=== PATIENT | female | born 1960 | race Caucasian/White ===

== ENCOUNTER 2016-12-09 22:21 | Emergency (ER) | payer OTHER, MEDICAID ==
[2016-12-09 22:37] VITALS: BP 131/67; PULSE 82; RESP 16; TEMP 98.1; O2SAT 94
--- NOTE | 2016-12-09 23:00 | EDPHY ---
HPI/HX/ROS/PE/MDM Narrative: Chief complaint: Right arm pain HPI: 56-year-old woman noticed today an area of a little bit of swelling and irritation in her right forearm. It is just distal to her antecubital fossa where she states she gets frequent blood draws for monitoring of her liver function. She states that her last blood draw was about 3 weeks ago. Has not noticed any redness or warmth. Has had a little bit of swelling just at that area. She has not had any skin bites or lesions. Also complaining of a little bit of a numbness and tingling in her 4th and 5th fingers. She does work in housekeeping and with repetitive use. Denies any fevers or chills. No chest pain or shortness of breath. No skin rash. ROS: 10 point Review of Systems is negative except as noted in the HPI. Physical exam: General: Awake, alert, no acute distress Right arm. Patient is indicating a area of irritation in her right forearm in the ulnar aspect just distal to the antecubital fossa. Which she feels is a lump are the flexor tendons. There is no mass. There is no fluctuance. There is no erythema. It is not tender. She has no proximal lymphadenopathy. She has not sensation intact in the radial, median, and ulnar nerve distribution. Skin: No rash ED Course: Area of irritation in her right arm over the flexor tendons. There is no findings suggestive of cellulitis, there are no lesions. There is no fluctuant masses. It is possible that she has an early nerve discomfort possibly from an early shingles or other process but it is no evidence of that at this time. Certainly there is no evidence of blood clot, cellulitis or abscess. Will discharge with follow-up with her primary care physician instructions return for any worsening. General Time Seen by Provider: 12/09/16 22:50 Initial Vital Signs: Initial Vital Signs Temperature (C) 36.7 C 12/09/16 22:32 Heart Rate 82 12/09/16 22:32 Respiratory Rate 16 12/09/16 22:32 Blood Pressure 131/67 H 12/09/16 22:32 O2 Sat (%) 94 12/09/16 22:32 O2 Delivery Mode Room Air Allergies/Adverse Reactions: morphine Allergy (Verified 12/09/16 22:29) Penicillins Allergy (Verified 12/09/16 22:29) Home Medications: Medication Instructions Recorded Azathioprine 05/05/15 Duloxetine HCl 05/05/15 Celebrex 12/09/16 Lyrica 12/09/16 Premarin 12/09/16 Zolpidem Tartrate 12/09/16 Departure - Departure Disposition: Home, Routine, Self-Care Clinical Impression: Pain of upper extremity Condition: Good Instructions: Arm Pain (ED) Additional Instructions: Return emergency depart for increasing pain, redness, worsening swelling, numbness, tingling, fevers, chills, or any other concerns. Follow up with primary care physician in 2-3 days if symptoms are not improving. Referrals: Kinga Wright [Primary Care Provider] - As per Instructions
== END 2016-12-09 23:17 | disposition home or self-care (01) ==
DX: M79.631 Pain in right forearm (principal)

== ENCOUNTER → 2017-02-06 | Outpatient (CLI) | payer MEDICAID, OTHER | LOC: FIMAGING 12:17 | DX: Z12.31 Encounter for screening mammogram for malignant neoplasm of breast (principal); M81.0 Age-related osteoporosis without current pathological fracture | CPT/HCPCS: G0202 ==

== ENCOUNTER 2018-05-22 03:32 | Emergency (ER) | payer OTHER, MEDICAID ==
[2018-05-22] MEDS ORDERED: CEPHALEXIN 500MG PREPACK#4 BTL TAKEHOME ONE (03:49)
[2018-05-22] MEDS ORDERED: CEPHALEXIN 500 MG CAP PO ONE (03:49)
--- NOTE | 2018-05-22 03:49 | EDPHY ---
H & P Stated Complaint: ?UTI Time Seen by Provider: 05/22/18 03:46 HPI/ROS: HPI CHIEF COMPLAINT: Methamphetamine abuse, daily use, multiple IV drug injection site infections HISTORY OF PRESENT ILLNESS: Patient 57-year-old female, she has a history of methamphetamine abuse, and uses methamphetamine daily she injected intravenously. She lives in an . She presents emergency room with multiple complaints. She states that she injected may have missed in her left breast and said some swelling redness and pain there however it is improving. Additionally left full arm missed injection site, additionally she complains of a right labia majora abscess. She denies injecting into her right labia majora. She noticed this swelling and pain that started early this morning. No fever. Denies chest pain or shortness of breath, denies cough, denies abdominal pain. Her main complaint is right labia majora abscess. Past Medical History: Methamphetamine abuse, daily methamphetamine IV, osteoarthritis Past Surgical History: Denies significant surgical history Social History: Smokes tobacco, daily use of IV methamphetamine. Family History: Noncontributory ROS REVIEW OF SYSTEMS: A comprehensive 10 point review of systems is otherwise negative aside from elements mentioned in the history of present illness. Exam Constitutional triage nursing summary reviewed, vital signs reviewed, awake/ alert. Eyes normal conjunctivae and sclera, EOMI, PERRLA. HENT normal inspection, atraumatic, moist mucus membranes, no epistaxis, neck supple/ no meningismus, no raccoon eyes. Respiratory clear to auscultation bilaterally, normal breath sounds, no respiratory distress, no wheezing. Cardiovascular rate normal, regular rhythm, no murmur, no edema, distal pulses normal. Gastrointestinal soft, non-tender, no rebound, no guarding, normal bowel sounds, no distension, no pulsatile mass. Genitourinary exam: Samira RN at bedside: Shows a right-sided labia majora abscess present. Musculoskeletal no midline vertebral tenderness, full range of motion, no calf swelling, no tenderness of extremities, no meningismus, good pulses, neurovascularly intact. Skin multiple small areas of missed injection sites mainly left breast, left forearm,. None of these are large enough to be drained. Recommend warm compresses. Neurologic awake, alert and oriented x 3, AAOx3, moves all 4 extremities equally, motor intact, sensory intact, CN II-XII intact, normal cerebellar, normal vision, normal speech. Psychiatric normal mood/affect. Heme/Lymph/Immune no lymphadenopathy. Differential Diagnosis: Includes but is not limited to in a particular order polysubstance abuse, IV methamphetamine, multiple missed injection sites, infection Medical Decision Making: Plan for this patient warm compresses, and oral antibiotics. Additionally will I and D and sent for culture of the right labia majora abscess. Re-evaluation: I+D Procedure: [facility]. The right labia majora abscess was drained. And I and D was performed. Verbal consent was obtained. Lidocaine with epinephrine approximately 7 cc were used for local anesthesia. She tolerated this very well. 11 blade scalpel was used for stab incision a 2 cm incision was made with drainage of blood and some pus. A culture was sent. Recommend to the patient she takes Keflex and Bactrim. Additionally recommend she does warm soaks 3 times a day. As for other sites of miss injection sites that are painful and swollen recommend warm compresses. Antibiotics. Additionally discussed return precautions with her she understands return emergency room if she develops worsening pain fever vomiting. 1. Stop doing methamphetamine. 2. Methamphetamine is very dangerous 3. Antibiotics as prescribed 4. Warm compresses 5 times a day. 5. Return emergency room if there is worsening symptoms. Source: Patient - Personal History Current Tetanus/Diphtheria Vaccine: Yes Current Tetanus Diphtheria and Acellular Pertussis (TDAP): Yes - Medical/Surgical History Hx Asthma: No Hx Chronic Respiratory Disease: No Hx Diabetes: No Hx Cardiac Disease: No Hx Renal Disease: No Hx Cirrhosis: No Hx Alcoholism: No Hx HIV/AIDS: No Hx Splenectomy or Spleen Trauma: No Other PMH: OA, RA, fibromyalgia, Hep C resolved, depression, PTSD, Appendectomy , hysterectomy, autoimmune hepatitis - Social History Smoking Status: Heavy smoker Constitutional: Initial Vital Signs Temperature (C) 36.9 C 05/22/18 03:35 Heart Rate 103 H 05/22/18 03:35 Respiratory Rate 16 05/22/18 03:35 Blood Pressure 106/60 05/22/18 03:35 O2 Sat (%) 95 05/22/18 03:35 O2 Delivery Mode Room Air Allergies/Adverse Reactions: morphine Allergy (Verified 12/09/16 22:29) Penicillins Allergy (Verified 12/09/16 22:29) Home Medications: Medication Instructions Recorded Azathioprine 05/05/15 Duloxetine HCl 05/05/15 Celebrex 12/09/16 Lyrica 12/09/16 Premarin 12/09/16 Zolpidem Tartrate 12/09/16 Cephalexin [Keflex] 500 mg PO Q6H #28 cap 05/22/18 Medical Decision Making - Data Points Medications Given: Discontinued Medications Cephalexin (Keflex 500 Mg Prepack#4) 1 btl TAKEHOME EDNOW ONE PRN Reason: Protocol Stop: 05/22/18 03:50 Last Admin: 05/22/18 03:59 Dose: 1 btl Cephalexin HCl (Keflex) 500 mg PO EDNOW ONE PRN Reason: Protocol Stop: 05/22/18 03:50 Last Admin: 05/22/18 03:58 Dose: 500 mg Departure - Departure Disposition: Home, Routine, Self-Care Clinical Impression: Abscess of labia majora, Methamphetamine abuse Condition: Good Instructions: Cephalexin (By mouth), Methamphetamine Abuse (ED), Abscess (ED), Sitz Bath (DC) Additional Instructions: 1. Stop doing methamphetamine. 2. Methamphetamine is very dangerous 3. Antibiotics as prescribed 4. Warm compresses 5 times a day. 5. Return to the emergency room if there is worsening symptoms. 6. Warm soaks/baths sitz baths for the vaginal abscess. Referrals: NONE *PRIMARY CARE P,. [Primary Care Provider] - As per Instructions Prescriptions: Cephalexin [Keflex] 500 mg PO Q6H #28 cap
[2018-05-22] MEDS ORDERED: SULFAMET/TMP DS PREPACK#2 BTL TAKEHOME ONE (04:08)
[2018-05-22] MEDS ORDERED: SULFAMETHOX/TMP 800/160 MG 1 TAB PO ONE (04:08)
[2018-05-22 04:17] VITALS: BP 104/67
== END 2018-05-22 04:41 | disposition home or self-care (01) ==
PROC: 0U9MXZZ Drainage of Vulva, External Approach (ICD-10-PCS; principal; 2018-05-22)
DX: F15.10 Other stimulant abuse, uncomplicated (principal); N76.4 Abscess of vulva; F17.200 Nicotine dependence, unspecified, uncomplicated

== ENCOUNTER 2018-05-23 20:07 | Inpatient (IN) | payer OTHER, MEDICAID ==
--- NOTE | 2018-05-23 20:56 | EDPHY ---
General - History Smoking Status: Heavy smoker Time Seen by Provider: 05/23/18 20:51 Narrative: CHIEF COMPLAINT: Abscess by labia HISTORY OF PRESENT ILLNESS: Patient presents with complaints of increasing pain, swelling or redness to the right labia. She was seen here 2 days ago where incision and drainage was performed. She was discharged home with wound care instructions, Bactrim and Keflex. She says she has been taking these as prescribed with no improvement. She said steadily worsening symptoms to the point that is now severe, 10/10 pain. No drainage from the vagina. No constipation. No diarrhea. No blood from stools. Subjective fever at times. She has no other associated complaints or modifying factors. REVIEW OF SYSTEMS: Ten systems reviewed and are negative unless otherwise noted in the HPI PCP: None currently SPECIALISTS: None currently PAST MEDICAL HISTORY: Osteoarthritis, rheumatoid arthritis, fibromyalgia, hep C status post treatment , depression, PTSD, autoimmune hepatitis PAST SURGICAL HISTORY: Hysterectomy, appendectomy SOCIAL HISTORY: Daily smoker. Occasional alcohol use. Recent methamphetamine user FAMILY HISTORY: Noncontributory EXAMINATION General Appearance: Alert, no distress. Well-developed well-nourished. Head: normocephalic, atraumatic Eyes: Pupils equal and round, no conjunctival pallor or injection ENT, Mouth: Mucous membranes moist Neck: Normal inspection, supple, non-tender Respiratory: Lungs are clear to auscultation. No wheezing rhonchi or crackles Cardiovascular: Tachycardic rate with regular rhythm. No murmur Gastrointestinal: Abdomen is soft and nontender. No tympany rigidity. No guarding. : Female RN (Ava) reed cleaner present. There is significant erythema and edema to the right labia majora with recent incision in place. No drainage. No purulence. There is extensive cellulitic changes surrounding this. No involvement of the perineum. Neurological: A&O, nonfocal, normal gait Skin: Warm and dry. Cellulitic and labile changes as above. Extremities: Nontender, no pedal edema Psychiatric: Mood and affect normal DIFFERENTIAL DIAGNOSES: Including but not limited to labial abscess, Bartholin gland cyst, cellulitis, pelvic abscess MDM: 8:55 p.m. Large right labial Medrol abscess with some surrounding cellulitic change to the vulva and overlying the mons pubis. There is no cellulitis of the back, buttock, abdominal wall. She had incision and drainage performed 2 days ago and has significant increase in size per RN at bedside. I have ordered CT of the area to visualize. I have also ordered pain medication, IV fluid and laboratory studies. 9:40 p.m. Case discussed with radiologist Dr. Castle. No identifiable abscess. There is edematous changes as noted. 9:45 p.m. Case discussed with Dr. Garcia patient recommends vancomycin IV, lactic cultures. Also recommends is kind consultation And admission to the hospital. 9:55 p.m. Case discussed with on-call chemical laboratory tester Dr. Garcia. He will for the patient requested she be admitted to the hospitalist. I do feel this is reasonable we will contact hospitalist for admission. 10:15 p.m. Case discussed with hospitalist Dr. Roldan. She will with the patient to her service. She is admitted stable condition. We will continue to monitor blood pressure as there was 1 low reading of systolic in the 90s earlier. Lactic acid is pending at this time. 2 L IV fluid ordered. She is awake alert no acute distress admitted stable condition. 10:30 p.m. Repeat blood pressure measurements are above 100 systolic. She has received 2 L IV fluid. Her lactic acid is negative at 1.2. She is stable for admission transport to the floor. SUPERVISION: Patient was evaluated in conjunction with Dr. Garcia. We have both examined and evaluated the patient. (Ildefonso Anthony) - Diagnostics Imaging Results: Imaging Impressions Pelvis CT 05/23/18 21:06 Impression: 1. Moderate soft tissue thickening and inflammation associated with the right labia without evidence of underlying abscess. Findings discussed with Ildefonso Anthony PAC at 21:42 hour, 05/23/2018. Discussion: This patient was seen and examined by me. She is nontoxic-appearing; erythema warmth and tenderness of the moans pubis and just superior as well as significant swelling and tenderness of the right labia majora. c/w cellulitis of the right labia and mons pubis area. CT scan reveals no evidence of abscess. Prior culture reveals MRSA. Blood cultures were drawn and vancomycin 1 g IV given. She meets SIRS criteria with tachycardia and leukocytosis. Initial lactate is normal. Initial blood pressure is 90/60 (unclear if valid, large adult cuff used), IV normal saline 2 L given. Repeat blood pressure is 105/63 (using a small BP cuff). (Natasha Garcia) - Objective Vital Signs: Initial Vital Signs Temperature (C) 97.9 F 05/23/18 20:15 Heart Rate 103 H 05/23/18 20:15 Respiratory Rate 16 05/23/18 20:15 Blood Pressure 90/60 L 05/23/18 20:15 O2 Sat (%) 95 05/23/18 20:15 O2 Delivery Mode Room Air O2 (L/minute) 2 Allergies/Adverse Reactions: morphine Allergy (Verified 12/09/16 22:29) Penicillins Allergy (Verified 12/09/16 22:29) Home Medications: Medication Instructions Recorded Lyrica 12/09/16 Cephalexin [Keflex] 500 mg PO Q6H #28 cap 05/22/18 Laboratory Results: Laboratory Results 05/23/18 20:45 05/23/18 05/23/18 21:10 20:45 WBC 14.99 10^3/uL H 10^3/uL (3.80-9.50) RBC 4.52 10^6/uL 10^6/uL (4.18-5.33) Hgb 14.1 g/dL g/dL (12.6-16.3) POC Hgb 14.6 gm/dL gm/dL (12.6-16.3) Hct 42.3 % % (38.0-47.0) POC Hct 43 % % (38-47) MCV 93.6 fL fL (81.5-99.8) MCH 31.2 pg pg (27.9-34.1) MCHC 33.3 g/dL g/dL (32.4-36.7) RDW 13.0 % % (11.5-15.2) Plt Count 180 10^3/uL 10^3/uL (150-400) MPV 11.0 fL fL (8.7-11.7) Neut % (Auto) 80.9 % H % (39.3-74.2) Lymph % (Auto) 12.5 % L % (15.0-45.0) [place] % (Auto) 4.4 % L % (4.5-13.0) Eos % (Auto) 1.4 % % (0.6-7.6) Baso % (Auto) 0.3 % % (0.3-1.7) Nucleat RBC Rel Count 0.0 % % (0.0-0.2) Absolute Neuts (auto) 12.14 10^3/uL H 10^3/uL (1.70-6.50) Absolute Lymphs (auto) 1.87 10^3/uL 10^3/uL (1.00-3.00) Absolute Monos (auto) 0.66 10^3/uL 10^3/uL (0.30-0.80) Absolute Eos (auto) 0.21 10^3/uL 10^3/uL (0.03-0.40) Absolute Basos (auto) 0.04 10^3/uL 10^3/uL (0.02-0.10) Absolute Nucleated RBC 0.00 10^3/uL 10^3/uL (0-0.01) Immature Gran % 0.5 % % (0.0-1.1) Immature Gran # 0.07 10^3/uL 10^3/uL (0.00-0.10) POC Sodium 139 mEq/L mEq/L (135-145) POC Potassium 3.5 mEq/L mEq/L (3.3-5.0) POC Chloride 104 mEq/L mEq/L (97-110) POC BUN 11 mg/dL mg/dL (7-23) POC Creatinine 0.6 mg/dL mg/dL (0.6-1.0) POC Glucose 105 mg/dL H mg/dL (70-100) Medications Given: Discontinued Medications Fentanyl (Sublimaze) 100 mcg IVP EDNOW ONE Stop: 05/23/18 21:05 Last Admin: 05/23/18 21:07 Dose: 100 mcg Sodium Chloride (Ns) 1,000 mls @ 0 mls/hr IV EDNOW ONE; Wide Open PRN Reason: Protocol Stop: 05/23/18 21:08 Last Admin: 05/23/18 22:29 Dose: 1,000 mls Vancomycin/Sodium Chloride (Vancomycin 1 Gm (Premix)) 250 mls @ 250 mls/hr IV EDNOW ONE PRN Reason: Protocol Stop: 05/23/18 22:45 Last Admin: 05/23/18 22:27 Dose: 250 mls Sodium Chloride (Ns) 1,000 mls @ 0 mls/hr IV EDNOW ONE; Wide Open PRN Reason: Protocol Stop: 05/23/18 22:23 Last Admin: 05/23/18 21:15 Dose: 1,000 mls Ondansetron HCl (Zofran) 4 mg IVP EDNOW ONE Stop: 05/23/18 21:05 Last Admin: 05/23/18 21:07 Dose: 4 mg Oxycodone/Acetaminophen (Percocet 5/325) 2 tab PO EDNOW ONE Stop: 05/23/18 22:16 Last Admin: 05/23/18 22:36 Dose: 2 tab Point of Care Test Results: Chemistry 05/23/18 21:10 POC Sodium 139 mEq/L mEq/L (135-145) POC Potassium 3.5 mEq/L mEq/L (3.3-5.0) POC Chloride 104 mEq/L mEq/L (97-110) POC BUN 11 mg/dL mg/dL (7-23) POC Creatinine 0.6 mg/dL mg/dL (0.6-1.0) POC Glucose 105 mg/dL H mg/dL (70-100) ISTAT H&H 05/23/18 21:10 POC Hgb 14.6 gm/dL gm/dL (12.6-16.3) POC Hct 43 % % (38-47) Departure - Departure Disposition: [facility] Clinical Impression: Vulvar cellulitis, Swelling of labia, Failure of outpatient treatment Condition: Good
[2018-05-23] MEDS ORDERED: fentaNYL 100 MCG/2 ML INJ ONE (21:04)
[2018-05-23] MEDS ORDERED: ONDANSETRON 4 MG/2 ML VIAL ONE (21:04)
[2018-05-23] MEDS ORDERED: ONDANSETRON 4 MG/2 ML VIAL IVP ONE (21:04)
[2018-05-23] MEDS ORDERED: fentaNYL 100 MCG/2 ML INJ IVP ONE (21:04)
[2018-05-23 21:15] LABS: PLATELET COUNT 180 10^3/uL (150-400)
[2018-05-23] MEDS ORDERED: IOPAMIDOL (ISOVUE-300) 100 ML BTL ONE (21:15)
[2018-05-23] MEDS: NS 1,000 ML IV ONE ×2 (21:18→22:29)
[2018-05-23] MEDS ORDERED: VANCOMYCIN HCL/NORMAL SALINE 250 ML IV ONE (21:46)
[2018-05-23] MEDS ORDERED: VANCOMYCIN 1 GM/NS 250 ML BAG IV ONE ×2 (21:59→22:10)
[2018-05-23] MEDS ORDERED: OXYCODONE/APAP 5/325 TAB PO ONE (22:15)
[2018-05-23] MEDS ORDERED: NS 1,000 ML IV ONE (22:22)
[2018-05-23] MEDS ORDERED: ACETAMINOPHEN 325 MG TAB PO PRN (22:44)
[2018-05-23] MEDS ORDERED: diphenhydrAMINE 25 MG CAP PO PRN (22:44)
[2018-05-23] MEDS ORDERED: LORazepam 0.5 MG TAB PO PRN (22:44)
[2018-05-23] MEDS ORDERED: OXYCODONE/APAP 5/325 TAB PO PRN (22:44)
[2018-05-23] MEDS ORDERED: ONDANSETRON 4 MG/2 ML VIAL IVP PRN (22:44)
[2018-05-23] MEDS ORDERED: NS 1,000 ML IV SCH (22:45)
[2018-05-23 23:04] LABS: PROTIME(PATIENT) 13.4 SEC (12.0-15.0)
[2018-05-23] MEDS: KETOROLAC 15 MG/1 ML SDV IVP PRN (23:30)
[2018-05-23] MEDS ORDERED: hydrOXYzine HCL 25 MG TAB PO PRN (23:44)
[2018-05-23] MEDS ORDERED: VANCOMYCIN HCL/NORMAL SALINE 250 ML IV SCH (23:45)
[2018-05-24] MEDS: NICOTINE 21 MG/24 HR PATCH TD SCH ×2 (00:24→10:23)
[2018-05-24] MEDS ORDERED: fentaNYL 100 MCG/2 ML INJ IVP ONE (00:37)
--- NOTE | 2018-05-24 01:00 | GHP ---
[f rep st] HISTORY AND PHYSICAL DATE OF ADMISSION: 05/23/2018 SOURCE: Patient provides history, is fair historian. EMR was reviewed and case discussed with ED provider. CHIEF COMPLAINT: Right labial pain. HISTORY OF PRESENT ILLNESS: This is a 57-year-old female with past medical history significant for chronic pain, rheumatoid arthritis, fibromyalgia, history of HCV status post treatment, autoimmune hepatitis, PTSD, and depression , who presents to the emergency department after 48 hours of initial evaluation for right labial swelling and abscess. Patient reports that after her I and D she went home and has been compliant with the Bactrim and Keflex she received. She denies any drainage from her wound or vagina. She has continued to have subjective fevers, chills at home. No sweats. Patient reports increasing pain and redness in the last several days that is quite unbearable. Patient denies any associated nausea, vomiting, but increasing superficial abdominal pain at the site of her erythema. Patient underwent I and D in the ED on her initial visit, and cultures from this wound did grow back MRSA. Patient reports that she did develop a little upset stomach since receiving p.o. Percocet. She is lying in bed, crying out in pain, complaining of unbearable pain at the site of her cellulitis. However, when patient is answering her texts or answering questions regarding her past medical history, she stops and answers calmly. REVIEW OF SYSTEMS: GENERAL: Positive for subjective fevers, chills. No sweats. SKIN: Cellulitis in the right greater than left vulva and over the lesa into the lower abdomen. Patient also reports history of chronic dry itching rash on the left lateral leg, which she has had for several years that is unchanged. ENT: No congestion. No rhinorrhea, sore throat. Currently patient is tearful. EYES: No acute changes in vision or ocular pain. CV: No chest pain or palpitations. RESPIRATORY: No shortness of breath or cough. ABDOMEN: Patient reporting some upset stomach after Percocet p.o. Otherwise, no diarrhea or internal abdominal discomfort. : Patient reports that she was just recently treated for UTI. She denies any dysuria or bladder spasms or frequency or urgency, which has been improving. MUSCULOSKELETAL: Chronic diffuse joint pain and myalgias. NEURO: Patient denies any headache, numbness , tingling, or focal deficits. PSYCH: Patient does report that she has been off all of her previously prescribed medications for PTSD, anxiety, and depression for 8 months. She also reports that around that time she had a relapse and had resumed using IV methamphetamines. Patient reports that her last use was approximately 2 days ago when she presented to the emergency department, and she desires to quit. She reports that she has all the resources and is aware of programs available. Declines to have Social Work visit with her. ALLERGIES: Morphine, penicillin. HOME MEDICATIONS: Keflex, Bactrim. PAST MEDICAL HISTORY: Significant for rheumatoid arthritis, osteoarthritis, fibromyalgia, chronic pain, HCV status post treatment, PTSD, depression, autoimmune hepatitis, history of shingles. PAST SURGICAL HISTORY: Hysterectomy BSO, appendectomy, and recently I and D of the right vulva. FAMILY HISTORY: Patient denies any autoimmune disorders. No diabetes. No hypertension. SOCIAL HISTORY: Patient lives with her . She feels safe at home. She does smoke just under a pack per day. She reports quitting methamphetamine injectable use just 2-3 days ago. She denies any current alcohol use. CODE STATUS: Full. PHYSICAL EXAMINATION: VITAL SIGNS: Upon arrival to the ED today, patient's blood pressure is 90/60, heart rate 103, respiratory rate 16, O2 saturation 95% on room air with temperature of 36.6. Current blood pressure is 110/75. Patient has some listed blood pressures that are below 90 systolically, but this is with use of a large cuff. Heart rate 90, respiratory rate 14, O2 saturation 97% on room air with temperature of 36.6. GENERAL: Patient upon entering the room is crying out and tearful. She is cradling her perineum, complaining of significant pain. When interview started and she was asked about her past medical history, patient does stop crying and answers questions calmly. She also has similar behavior when she is answering a text on her phone during the interview and then she resumes rolling and crying in bed. At those moments she is in no acute distress and rests comfortably. HEAD: Normocephalic, atraumatic. EYES: Extraocular muscles are intact. Pupils equal , round, reactive to light bilaterally and symmetric. No scleral icterus, conjunctival injection. ENT: Mucous membranes appear moist. No oropharyngeal erythema or exudates. Clear nasal discharge with patient tearful. NECK: Supple. Trachea midline. CV: Regular rate and rhythm. No murmurs, rubs, or gallops appreciated. Slightly distant heart sounds. RESPIRATORY: Unlabored breathing. Lungs are clear to auscultation bilaterally. No wheezes, rales, or rhonchi. ABDOMEN: Positive bowel sounds. Soft, nontender to palpation except over the areas of cellulitis. No guarding or masses appreciated. : No Patient has a significantly swollen right vulva. She has incision site that is scabbed over without any drainage. The erythema does extend slightly to the left and also over her lesa and to her lower abdomen. This area is quite tender to palpation. It is indurated. No fluctuance. No Underwood catheter in place. MUSCULOSKELETAL: Patient is able to move all her extremities. Strength 5/5 in upper and lower extremities. NEURO: Grossly nonfocal. No facial drooping. PSYCH: Patient is anxious, tearful, and again she is intermittently in distress, complaining of pain but does stop immediately when distracted. LABORATORY STUDIES: 1. WBC 14.99, H and H of 14.1 and 42.3, MCV of 93.6, platelet count is 108, neutrophil percent is 80.9. No bands. PT is 13.4, INR is 1.0, PTT is 26.1. 2. VBG lactic acid 1.2. 3. BMP shows sodium 140, potassium 3.7, chloride 104, CO2 is 22, anion gap 14, BUN is 12, creatinine 0.7, GFR greater than 60, glucose 104, calcium 9.0, total bilirubin 0.6. 4. Micro studies reviewed from visit on 05/22/2018 I&D, showing positive MRSA. 5. CT abdomen/pelvis image report reviewed, showing moderate soft tissue thickening and inflammation associated with right labia without evidence of underlying abscess, mildly prominent reactive lymph nodes in the inguinal region in the right side. No pelvic lymphadenopathy. Previous hysterectomy, appendectomy noted. No significant lytic or sclerotic osseous lesions. ASSESSMENT AND PLAN: A 57-year-old female who presents back with worsening vulvar cellulitis status post incision and drainage. 1. Cellulitis and history of abscess from the right labia status post incision and drainage as noted above. Growth positive for methicillin-resistant Staphylococcus aureus. Patient had taken Bactrim and Keflex for 2 days by report. She has been transitioned to intravenous vancomycin, given failure of antibiotic therapy. Blood cultures are pending. 2. Intractable pain. We will try to minimize use of narcotics intravenously. Patient with allergy to morphine. She reports that she blacks out. She states that she did tolerate fentanyl. However, at this time we will hold off on intravenous narcotics. She is able to tolerate by mouth. Toradol has been ordered and encouraged use of ice to minimize swelling. Percocet as needed. We will monitor patient's Tylenol load given history of autoimmune hepatitis. LFTs have been ordered and pending. 3. Sepsis criteria without acute organ dysfunction. Patient with a leukocytosis, tachycardia. She did have an initial low blood pressure measure, but this is likely due to an inappropriately-sized cuff. Her blood pressures are adequate at this time. She will receive intravenous fluids. Cultures are pending, and lactate is within normal limits. 4. History of recent urinary tract infection. Patient reports that her symptoms are improving. She did have a short course of Keflex, Bactrim. We will check a UA. In addition, we will add on urine toxicity screen. 5. History of posttraumatic stress disorder, depression, and anxiety. Patient has not been on any of her medications in approximately 8 months. Ativan will be available as needed as well as hydroxyzine for patient's history of posttraumatic stress disorder. 6. Tobacco dependence. Cessation encouraged. Nicotine patch ordered. 7. History of methamphetamine abuse. Urine toxicity screen is pending. Monitor for evidence of withdrawal but at this time patient's answers are appropriate, although she is crying and slightly hysterical. However, she is able to be redirected and appears calm when distracted. Plan for pain management as noted above. 8. History of rheumatoid arthritis, fibromyalgia, and chronic pain management for her acute issues. As noted above, I have encouraged the patient to return and established back with her provider at [facility]. 9. Fluid, electrolyte, nutrition: Continue with intravenous fluids for support overnight. Encourage oral intake and hydration. Hopefully can transition off fluids in the morning. 10. Prophylaxis: Sequential compression devices and Lovenox. 11. COR status: Full. 12. Disposition: Patient admitted to inpatient status on the medical floor. Anticipate greater than 2-midnight stay given severity of her cellulitis and failure of antibiotic therapy for 48 hours. /[id number]/MODL MTDD
[2018-05-24 05:02] LABS: PLATELET COUNT 167 10^3/uL (150-400)
[2018-05-24] MEDS: KETOROLAC 15 MG/1 ML SDV IVP PRN (05:15)
[2018-05-24] MEDS ORDERED: ENOXAPARIN 40 MG/0.4 ML SYR SC SCH (09:00)
--- NOTE | 2018-05-24 10:20 | HOSPPROG ---
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 pelvic ct images reviewed/interp by me Objective: Vital Signs Temp Pulse Resp BP Pulse Ox 36.6 C 85 14 96/68 L 93 05/24/18 10:11 05/24/18 10:11 05/24/18 10:11 05/24/18 10:11 05/24/18 10:11 Laboratory Results 05/24/18 04:44 05/24/18 04:44 05/23/18 05/24/18 05/25/18 05:59 05:59 05:59 Intake Total 2250 Output Total 300 Balance 1950 PT 13.4 SEC (12.0-15.0) 05/23/18 20:45 INR 1.00 (0.83-1.16) 05/23/18 20:45 - Physical Exam Constitutional: no apparent distress, appears nourished Eyes: PERRL, anicteric sclera Ears, Nose, Mouth, Throat: moist mucous membranes, hearing normal Cardiovascular: regular rate and rhythym, no murmur, rub, or gallop Respiratory: no respiratory distress, no rales or rhonchi Gastrointestinal: normoactive bowel sounds, soft, non-tender abdomen Genitourinary: no bladder fullness, other (R labia edematous w small pustule, some drainage), No ramírez in urethra Skin: warm, normal color Musculoskeletal: full muscle strength Neurologic: AAOx3 ICD10 Worksheet Patient Problems: Problems Problem Status Onset Failure of outpatient treatment Acute Swelling of labia Acute Vulvar cellulitis Acute
[2018-05-24] MEDS ORDERED: VANCOMYCIN 750 MG in D5W 150 ML IV SCH (10:30)
--- NOTE | 2018-05-24 10:54 | PDCONSULT ---
Ladies' Locker Room Attendant Note: I spoke with primary team attending physician this morning and we spoke briefly regarding this patient's presentation and plan of care. When I came down to her room later in the day to evaluate her she had apparently left AMA. I did review her admission documentation, lab work, and imaging reports as below : Labs: WBC 10.67 10^3/uL (3.80-9.50) H 05/24/18 04:44 RBC 4.00 10^6/uL (4.18-5.33) L 05/24/18 04:44 Hgb 12.5 g/dL (12.6-16.3) L 05/24/18 04:44 POC Hgb 14.6 gm/dL (12.6-16.3) 05/23/18 21:10 Hct 37.3 % (38.0-47.0) L 05/24/18 04:44 POC Hct 43 % (38-47) 05/23/18 21:10 MCV 93.3 fL (81.5-99.8) 05/24/18 04:44 MCH 31.3 pg (27.9-34.1) 05/24/18 04:44 MCHC 33.5 g/dL (32.4-36.7) 05/24/18 04:44 RDW 13.1 % (11.5-15.2) 05/24/18 04:44 Plt Count 167 10^3/uL (150-400) 05/24/18 04:44 MPV 10.9 fL (8.7-11.7) 05/24/18 04:44 Neut % (Auto) 73.5 % (39.3-74.2) 05/24/18 04:44 Lymph % (Auto) 18.0 % (15.0-45.0) 05/24/18 04:44 [place] % (Auto) 5.2 % (4.5-13.0) 05/24/18 04:44 Eos % (Auto) 2.6 % (0.6-7.6) 05/24/18 04:44 Baso % (Auto) 0.4 % (0.3-1.7) 05/24/18 04:44 Nucleat RBC Rel Count 0.0 % (0.0-0.2) 05/24/18 04:44 Absolute Neuts (auto) 7.84 10^3/uL (1.70-6.50) H 05/24/18 04:44 Absolute Lymphs (auto) 1.92 10^3/uL (1.00-3.00) 05/24/18 04:44 Absolute Monos (auto) 0.56 10^3/uL (0.30-0.80) 05/24/18 04:44 Absolute Eos (auto) 0.28 10^3/uL (0.03-0.40) 05/24/18 04:44 Absolute Basos (auto) 0.04 10^3/uL (0.02-0.10) 05/24/18 04:44 Absolute Nucleated RBC 0.00 10^3/uL (0-0.01) 05/24/18 04:44 Immature Gran % 0.3 % (0.0-1.1) 05/24/18 04:44 Immature Gran # 0.03 10^3/uL (0.00-0.10) 05/24/18 04:44 PT 13.4 SEC (12.0-15.0) 05/23/18 20:45 INR 1.00 (0.83-1.16) 05/23/18 20:45 APTT 26.1 SEC (23.0-38.0) 05/23/18 20:45 VBG Lactic Acid 1.2 mmol/L (0.7-2.1) 05/23/18 22:02 POC Sodium 139 mEq/L (135-145) 05/23/18 21:10 Sodium 142 mEq/L (135-145) 05/24/18 04:44 POC Potassium 3.5 mEq/L (3.3-5.0) 05/23/18 21:10 Potassium 4.3 mEq/L (3.3-5.0) 05/24/18 04:44 POC Chloride 104 mEq/L (97-110) 05/23/18 21:10 Chloride 113 mEq/L (97-110) H 05/24/18 04:44 Carbon Dioxide 22 mEq/l (22-31) 05/24/18 04:44 Anion Gap 7 mEq/L (8-16) L 05/24/18 04:44 POC BUN 11 mg/dL (7-23) 05/23/18 21:10 BUN 11 mg/dL (7-23) 05/24/18 04:44 Creatinine 0.6 mg/dL (0.6-1.0) 05/24/18 04:44 POC Creatinine 0.6 mg/dL (0.6-1.0) 05/23/18 21:10 Estimated GFR > 60 05/24/18 04:44 Glucose 109 mg/dL (70-100) H 05/24/18 04:44 POC Glucose 105 mg/dL (70-100) H 05/23/18 21:10 Calcium 8.3 mg/dL (8.5-10.4) L 05/24/18 04:44 Total Bilirubin 0.3 mg/dL (0.1-1.4) 05/24/18 04:44 Conjugated Bilirubin 0.3 mg/dL (0.0-0.5) 05/24/18 04:44 Unconjugated Bilirubin 0.0 mg/dL (0.0-1.1) 05/24/18 04:44 AST 29 IU/L (14-46) 05/24/18 04:44 ALT 51 IU/L (9-52) 05/24/18 04:44 Alkaline Phosphatase 78 IU/L (38-126) 05/24/18 04:44 Total Protein 5.4 g/dL (6.3-8.2) L 05/24/18 04:44 Albumin 2.6 g/dL (3.5-5.0) L 05/24/18 04:44 Urine Color YELLOW 05/23/18 23:59 Urine Appearance CLEAR 05/23/18 23:59 Urine pH 6.0 (5.0-7.5) 05/23/18 23:59 Ur Specific [place] > 1.035 (1.002-1.030) H 05/23/18 23:59 Urine Protein NEGATIVE (NEGATIVE) 05/23/18 23:59 Urine Ketones NEGATIVE (NEGATIVE) 05/23/18 23:59 Urine Blood NEGATIVE (NEGATIVE) 05/23/18 23:59 Urine Nitrate NEGATIVE (NEGATIVE) 05/23/18 23:59 Urine Bilirubin NEGATIVE (NEGATIVE) 05/23/18 23:59 Urine Urobilinogen 2.0 EU (0.2-1.0) H 05/23/18 23:59 Ur Leukocyte Esterase 1+ (NEGATIVE) H 05/23/18 23:59 Urine RBC NONE SEEN /hpf (0-3) 05/23/18 23:59 Urine WBC 10-15 /hpf (0-3) H 05/23/18 23:59 Ur Epithelial Cells TRACE /lpf (NONE-1+) 05/23/18 23:59 Urine Glucose NEGATIVE (NEGATIVE) 05/23/18 23:59 Urine Opiates Screen NEGATIVE ng/mL (NEGATIVE) 05/23/18 23:59 Urine Barbiturates NEGATIVE ng/mL (NEGATIVE) 05/23/18 23:59 Ur Phencyclidine Scrn NEGATIVE ng/mL (NEGATIVE) 05/23/18 23:59 Ur Amphetamines Screen > 42901 ng/mL (NEGATIVE) 05/23/18 23:59 U Benzodiazepines Scrn NEGATIVE ng/mL (NEGATIVE) 05/23/18 23:59 Urine Cocaine Screen NEGATIVE ng/mL (NEGATIVE) 05/23/18 23:59 U Marijuana (THC) Screen NEGATIVE ng/mL (NEGATIVE) 05/23/18 23:59 Imaging: Date of Service: 05/23/18 Acct Num: [id number] CT Pelvis W IV Contrast ___ CT Scan of the Pelvis (With Contrast) 2124 hours History: Right labial abscess. Incision and drainage 2 days ago with interval significant expansion Technique: Axial computed tomographic images of the abdomen and pelvis were obtained with the uneventful intravenous administration of 80 mL Isovue-300 contrast. Images were reviewed in multiple planes. Dose reduction techniques were utilized. CT Pelvis Findings: Soft tissues: There is moderate soft tissue thickening involving the right labia without evidence of enhancing abscess. There are some mildly prominent reactive nodes in the inguinal region on the right side. No pelvic lymphadenopathy is delineated. Pelvic structures: The patient has had previous hysterectomy. No pelvic masses are seen. Bladder: Normal. Appendix: Previous appendectomy. Bowel Loops: Normal. No ascites. Skeletal system: There are no significant lytic or sclerotic osseous lesions. Impression: 1. Moderate soft tissue thickening and inflammation associated with the right labia without evidence of underlying abscess. Findings discussed with Ildefonso Anthony PAC at 21:42 hour, 05/23/2018. A/P: In my discussion with primary team their impression was that the patient was improving on IV antibiotic regimen. I discussed with them that her CT results indeed do not show a focal fluid collection/abscess that would require surgical intervention, so I would agree with antibiotic treatment at this point with MRSA coverage as that pathogen particularly common with vulvar cellulitis/ abscess. It is my understanding that she had failed outpatient PO therapy prior to this admission, so I unfortunately would certainly agree with inpatient care and broad spectrum IV abx with MRSA coverage to ensure we are seeing significant clinical improvement. It is true that left untreated these cases can sometimes progress rapidly with disastrous consequences. BARBARA
--- NOTE | 2018-05-24 12:24 | PDMN ---
Medical Necessity Medical necessity: [facility] M70 cellulitis A-2 days: M160 sepsis and other febrile illness: leukocytosis and tachycardia, failed outpt pt with hx of abscess with I/D growth + for MRSA, with intractable pain, UTI, improving, HX PTSD, hx methamphetamine abuse- following , hx RA, fibromyalgia, chronic pain, anticipate > 2 mn ongoing med nec care eval and tx. IVF, IV abx, IV toradol,
[2018-05-24 12:42] VITALS: BP 116/63
--- NOTE | 2018-05-24 15:33 | GDS ---
[f rep st] DISCHARGE SUMMARY DISCHARGE DIAGNOSIS: Vulvar cellulitis. HOSPITAL COURSE: Please note the patient left against medical advice. The patient was admitted with vulvar cellulitis. She had a previously ER visit where the micro grew out MRSA. She was started on vancomycin. She had failed outpatient antibiotics. She was not febrile, septic, or toxic. CT scan showed no evidence of abscess. The patient had a tox screen markedly positive for amphetamines. Jamia whelan left AMA today. She did not take her Keflex, Bactrim as prescribed, I did not have a chance to pre scribe her antibiotics. /[id number]/MODL
== END 2018-05-24 14:18 | disposition left against medical advice (07) | DRG 759 ==
LOC: F1N 23:04
PROVIDERS: ADMIT Family Medicine; ATTEND Family Medicine
DX: N76.2 Acute vulvitis (principal); B95.62 Methicillin resistant Staphylococcus aureus infection as the cause of diseases classified elsewhere; F15.90 Other stimulant use, unspecified, uncomplicated; M06.9 Rheumatoid arthritis, unspecified; G89.29 Other chronic pain; M19.90 Unspecified osteoarthritis, unspecified site; F43.10 Post-traumatic stress disorder, unspecified; Z86.19 Personal history of other infectious and parasitic diseases; F17.210 Nicotine dependence, cigarettes, uncomplicated
CPT/HCPCS: 80307; 82435-PO; 82565-PO; 82947-PO; 84132-PO; 84295-PO; 84520-PO; 85014-PO; 96365; G0480; J1650; J1885; J2405; J3010; J3370; Q9967